=== PATIENT | female | born 1955 | race Caucasian/White ===

== ENCOUNTER 2023-12-08 20:50 | Emergency (ER) | payer MEDICARE, OTHER, SELFPAY ==
[2023-12-08] VITALS (7 sets, daily range): BP systolic 147–191; BP diastolic 74–100; BMI 26.1
[2023-12-08 22:14] LABS: % Basophils 0.5 % (0-2); % Eosinophils 3.2 % (0-6); % Immature Granulocytes 0.4 % (0-0.5); % Monocytes 8.6 % (1.7-9.3); % Neutrophils 52.3 % (42.2-75.2); Absolute Eosinophils 0.3 10^3/uL (0-0.7); Absolute Lymphocytes 2.9 10^3/uL (1.2-3.4); Absolute Monocytes 0.7 10^3/uL (0.1-0.6); Absolute Neutrophils 4.3 10^3/uL (1.4-6.5); Hematocrit 39.5 % (37.0-47.0); Hemoglobin 13.2 g/dL (12.0-16.0); Mean Corp Hgb Conc. 33.4 g/dL (33.0-37.0); Mean Corpuscular Hgb 30.5 pg (27.0-31.0); Mean Corpuscular Volume 91.2 fL (81.0-99.0); Mean Platelet Volume 10.3 fL (7.4-10.4); Nucleated Red Blood Cells % 0 %; Platelet Count 192 10^3/uL (130-400); Red Blood Cell Count 4.33 10^6/uL (4.20-5.40); Red Cell Dist. Width 12.8 % (11.5-14.5); White Blood Cell Count 8.3 10^3/uL (4.8-10.8)
--- NOTE | 2023-12-08 22:17 | ED.GENMED ---
History of Present Illness
General
Chief Complaint: Blood Pressure Problem
Source: patient
Exam Limitations: none
Time Seen by Provider: 12/08/23 22:05
Nursing documentation reviewed up to this point in time: agreed with
Travel History
Have you had any contact with someone who has COVID-19?: No
Do you have any symptoms of coronavirus? Fever > 100 degrees, chills, cough, shortness of breath, sore throat, loss of taste or smell, muscle aches, or headache?: No
History of Present Illness
History of Present Illness:
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
vomiting no chest pain or shortness of breath
She is noted her blood pressures in the past week or so as well high as 190/100 not on any antihypertensive meds, does have appointment see cardiology in 2 weeks to be evaluated, no history of CAD, does have a family history no slurred speech no arm
or leg weakness, no shortness of breath did have a 1 or 2-second twinge of sharp pain in her chest earlier today
Past History
Past History
ED Past Medical History: GERD and Hypercholesterolemia; Negative HTN
ED Past Surgical History: and Gynecological (Bladder suspension)
Social History
Tobacco: Non-smoker
Alcohol: None
Drug: None
Personal: Single
Employment: Employed
Family History
Family History: CAD (Father at a late age); Negative Early CAD or Sudden
Review of Systems
Review of Systems
All Other Systems: Not applicable
Constitutional: Reports no symptoms; Denies fever or fatigue
EENT: Reports no symptoms
Respiratory: Denies cough or trouble breathing
Cardiac: Reports chest pain (1 to 2-second 20)
ABD/GI: Reports no symptoms
: Reports no symptoms
Musculoskeletal: Reports no symptoms
Skin: Reports no symptoms
Neurological: Reports headache; Denies dizzy
Endocrine: Reports no symptoms
Hematologic/Lymphatic: Reports no symptoms
Phy Exam
Physical Exam
Physical Exam:
Physical Exam
General: no apparent distress, not acutely ill
Neck: No jaundice
Heart: s1/s2 regular rate and rhythm, no murmur. equal radial pulses.
Lungs: no acute respiratory distress. clear bilaterally
Abdomen: Nontender
Neuro: alert and oriented. no focal neurological deficits no facial palsy clears
Skin: no rash
Psychiatric: well kept. interactive and cooperative
Extremities: no edema.
Course
Orders/Labs/Results
Orders:
Orders
12/08/23 21:02
Electrocardiogram (*1) Urgent
Reason for Study: QTc Monitoring
EKG- Treatment ONCE
12/08/23 21:45
Cardiac Monitoring- Treatment ONCE
IV Insert/Care/Rem.- Treatment PRN
12/08/23 22:10
Basic Metabolic Panel Urgent
Complete Blood Count/With Diff Urgent
Erythrocyte Sed Rate Urgent
Comment: ADD ON
12/08/23 22:15
Electrocardiogram (*1) Urgent
Reason for Study: Hypertension, Benign
EKG- Treatment ONCE
Acetaminophen [Tylenol] 1,000 mg PO NOW STA
12/08/23 22:16
CT Head W/o Iv Contrast Urgent
Comment:
Reason For Exam: headache
Troponin I Urgent
12/08/23 22:21
Add On- LAB Urgent
Tests Added?: esr
12/08/23 22:25
Enalapril [Vasotec] 5 mg PO NOW STA
Abnormal Lab Results
12/08/23
22:10
Absolute Monos (auto) 0.7 H 10^3/uL
(0.1-0.6)
BUN 22 H mg/dl
(7-17)
Glucose 108 H mg/dl
(70-99)
12/08/23 22:10
12/08/23 22:10
Vital Signs
Initial and Last Documented VS:
Initial Vital Signs
Temp Pulse Resp BP Pulse Ox
98.0 F 75 18 191/100 100
12/08/23 20:52 12/08/23 20:52 12/08/23 20:52 12/08/23 20:52 12/08/23 20:52
Last Documented Vital Signs
Temp Pulse Resp BP Pulse Ox
98.0 F 60 18 183/92 97
12/08/23 20:52 12/08/23 23:00 12/08/23 20:52 12/08/23 23:00 12/08/23 23:00
MDM/Problems Addressed
Differential Diagnosis Includes:
Hypertension, intracerebral process, temporal arteritis giant cell arteritis doubt ACS or PE
MDM/Problems Addressed:
High blood pressure headache
*Radiology
Radiology exam reviewed: preliminary read by ED provider
*Pulse Oximetry
Patient hypoxic: no
*EKG
Interpreted by ED Provider?: Yes
Interpretation: normal
Comparison EKG: no comparison EKG present
Heart Rate: 78
Rate: normal
Rhythm: sinus
Ischemia: no ischemia
*Billet Heater Operator Interpretation
Rate: normal
Interpretation: normal
Heart Rate: 78
Rhythm: sinus
*Critical Care Note
Total Time (30-74mins, 75-104mins- exclusive of procedures): Not Applicable
Update Note
Update Note:
Update [address] of the head noted report noted EKG noted troponin ESR noted patient feeling better
Follow-up with PCP, keep her appointment with cardiology
ED Attending Note
-
Portions of this chart may have been created with voice recognition software.� Occasional wrong word or��sound alike� substitutions may have occurred due to the inherent limitations of voice recognition software.
Discharge Plan
Departure
Patient Disposition: Home (Routine Discharge)
Date of Disposition: 12/08/23
Time of Disposition: 23:59
Patient with high blood pressure during this ER visit?: Yes
Condition: Good
Discharge Problem:
High blood pressure
Instructions: High Blood Pressure (DC)
Prescriptions:
No Action
atorvastatin 10 mg Tablet
10 mg PO HS
Referrals:
Chioma Brown MD [Family Provider] -
Interventions
Interventions:
*Risk Screen - Suicide Last Done: 12/08/23 20:52
*General Assessment Last Done: 12/08/23 20:52
*Neglect/Abuse Screening Last Done: 12/08/23 20:52
ED- Fall Risk Assessment Last Done: 12/08/23 22:18
*ED COVID-19 Vaccine History Last Done: 12/08/23 20:52
ED- Cardiac Assessment Last Done: 12/08/23 22:18
ED- Neurological Assessment Last Done: 12/08/23 22:18
ED- Pulmonary Assessment Last Done: 12/08/23 22:18
Discharge Date and Time
Print Language: WOLOF
[2023-12-08 22:32] LABS: Blood Urea Nitrogen 22 mg/dl (7-17); Carbon Dioxide 28 mmol/L (22-30); Chloride 99 mmol/L (98-107); Estimated Creatinine Clearance 68 ml/min; Glucose 108 mg/dl (70-99); Sodium 135 mmol/L (135-145); eGFR > 60.00
[2023-12-08] MEDS: VASOTEC 5 MG PO (22:47)
[2023-12-08] MEDS: TYLENOL 1000 MG PO (22:47)
[2023-12-08 22:59] LABS: Erythrocyte Sed Rate 15 mm/hour (0-20)
[2023-12-09] VITALS: BP 150/81
[2023-12-09 00:49] LABS: Troponin I < 0.012 ng/ml
== END 2023-12-09 00:20 | disposition home or self-care (01) ==
LOC: EMR 20:50
PROVIDERS: Emergency Medicine; EMERGENCY PHYSICIAN Emergency Medicine; FAMILY PHYSICIAN Family Medicine
DX: I10 Essential (primary) hypertension (principal)
CPT/HCPCS: 99285; 70450; 80048; 84484; 85025; 85652; 93005

== ENCOUNTER 2023-12-17 21:01 | Emergency (ER) | payer MEDICARE, OTHER, SELFPAY ==
[2023-12-17 21:06] VITALS: BP 172/89
[2023-12-17 21:22] LABS: % Basophils 0.6 % (0-2); % Eosinophils 2.1 % (0-6); % Immature Granulocytes 0.1 % (0-0.5); % Lymphocytes 35.6 % (20.5-51.1); % Monocytes 7.7 % (1.7-9.3); % Neutrophils 53.9 % (42.2-75.2); Absolute Basophils 0.1 10^3/uL (0-0.2); Absolute Eosinophils 0.2 10^3/uL (0-0.7); Absolute Lymphocytes 3.2 10^3/uL (1.2-3.4); Absolute Monocytes 0.7 10^3/uL (0.1-0.6); Absolute Neutrophils 4.8 10^3/uL (1.4-6.5); Hematocrit 39.2 % (37.0-47.0); Hemoglobin 13.7 g/dL (12.0-16.0); Mean Corp Hgb Conc. 34.9 g/dL (33.0-37.0); Mean Corpuscular Hgb 30.9 pg (27.0-31.0); Mean Corpuscular Volume 88.5 fL (81.0-99.0); Mean Platelet Volume 10.1 fL (7.4-10.4); Nucleated Red Blood Cells % 0 %; Platelet Count 214 10^3/uL (130-400); Red Blood Cell Count 4.43 10^6/uL (4.20-5.40); Red Cell Dist. Width 12.6 % (11.5-14.5); White Blood Cell Count 8.9 10^3/uL (4.8-10.8)
[2023-12-17 21:43] LABS: ALT (SGPT) 25 U/L (0-35); AST (SGOT) 29 U/L (14-36); Albumin 4.8 g/dl (3.5-5.0); Alkaline Phosphatase 71 U/L (38-126); Blood Urea Nitrogen 17 mg/dl (7-17); Calcium 10.3 mg/dl (8.4-10.2); Carbon Dioxide 29 mmol/L (22-30); Chloride 100 mmol/L (98-107); Glucose 93 mg/dl (70-99); Potassium 3.9 mmol/L (3.5-5.1); Sodium 135 mmol/L (135-145); Total Bilirubin 0.6 mg/dl (0.2-1.3); Total Protein 7.8 g/dl (6.3-8.2); eGFR > 60.00
[2023-12-17 21:44] LABS: Troponin I < 0.012 ng/ml
[2023-12-17 23:14] VITALS: BP 173/80
[2023-12-17 23:48] VITALS: BP 159/76
[2023-12-18] VITALS: BP 162/81
--- NOTE | 2023-12-18 00:33 | ED.GENMED ---
History of Present Illness
General
Chief Complaint: Blood Pressure Problem
Source: patient
Exam Limitations: none
Time Seen by Provider: 12/18/23 00:18
Travel History
Have you had any contact with someone who has COVID-19?: No
Do you have any symptoms of coronavirus? Fever > 100 degrees, chills, cough, shortness of breath, sore throat, loss of taste or smell, muscle aches, or headache?: No
History of Present Illness
History of Present Illness:
68-year-old female presents with elevated blood pressure readings. She was here 10 days ago and diagnosed with hypertension. She was started on Vasotec 5 mg daily. She has been doing well. This evening she checked her blood pressure at home it
was systolic of 200. She states she feels okay without chest pain headache vision changes leg swelling or cough. She denies shortness of breath. She is due to see clinical nurse occupational medicine in 5 days. No other complaints at this time
Past History
Past History
ED Past Medical History: GERD and Hypercholesterolemia; Negative HTN
ED Past Surgical History: and Gynecological (Bladder suspension)
Social History
Tobacco: Non-smoker
Alcohol: None
Drug: None
Personal: Single
Employment: Employed
Family History
Family History: CAD (Father at a late age); Negative Early CAD or Sudden
Phy Exam
Physical Exam
Physical Exam:
General: Well-appearing female no acute respiratory distress
HEENT: Normocephalic atraumatic
Heart: Regular rate and rhythm no murmurs
Lungs: Clear to auscultation bilaterally no wheezing
Extremities: No cyanosis or edema
Skin: Warm no rash
Course
Orders/Labs/Results
Orders:
Orders
12/17/23 21:08
Electrocardiogram (*1) Urgent
Reason for Study: Other
Other Reason for Exam: hypertension
EKG- Treatment ONCE
12/17/23 21:16
Complete Blood Count/With Diff Urgent
Comprehensive Metabolic Panel Urgent
Troponin I Urgent
Abnormal Lab Results
12/17/23
21:16
Absolute Monos (auto) 0.7 H 10^3/uL
(0.1-0.6)
Calcium 10.3 H mg/dl
(8.4-10.2)
12/17/23 21:16
12/17/23 21:16
Vital Signs
Initial and Last Documented VS:
Initial Vital Signs
Temp Pulse Resp BP Pulse Ox
97.7 F 61 18 172/89 100
12/17/23 21:06 12/17/23 21:06 12/17/23 21:06 12/17/23 21:06 12/17/23 21:06
Last Documented Vital Signs
Temp Pulse Resp BP Pulse Ox
97.7 F 61 18 159/76 100
12/17/23 21:06 12/17/23 21:06 12/17/23 21:06 12/17/23 23:48 12/17/23 21:06
MDM/Problems Addressed
Differential Diagnosis Includes:
Elevated blood pressure readings at home. Asymptomatic currently. Labs through triage without significant finding. Currently blood pressure 160s over 80s. No indication for urgent lowering of blood pressure here. She will continue to check her
blood pressure. We discussed increasing her Vasotec to 10 mg daily. She will keep her appointment with her clinical nurse occupational medicine as planned.
*Critical Care Note
Total Time (30-74mins, 75-104mins- exclusive of procedures): Not Applicable
ED Attending Note
-
Portions of this chart may have been created with voice recognition software.� Occasional wrong word or��sound alike� substitutions may have occurred due to the inherent limitations of voice recognition software.
Discharge Plan
Departure
Patient Disposition: Home (Routine Discharge)
Date of Disposition: 12/18/23
Time of Disposition: 00:36
Patient with high blood pressure during this ER visit?: No
Discharge Problem:
Hypertension
Instructions: High Blood Pressure (DC)
Prescriptions:
No Action
atorvastatin 10 mg Tablet
10 mg PO HS
enalapril maleate [Vasotec] 5 mg tablet
5 mg PO DAILY Qty: 30 2RF
Referrals:
Chioma Brown MD [Family Provider] -
Activity Restrictions/Additional Instructions:
Please keep your appointment with cardiology as planned. You may increase Vasotec to 10 mg daily for better blood pressure control. Return if worse otherwise
Interventions
Interventions:
*Risk Screen - Suicide Last Done: 12/17/23 21:07
*General Assessment Last Done: 12/17/23 21:07
*Neglect/Abuse Screening Last Done: 12/17/23 21:07
*ED COVID-19 Vaccine History Last Done: 12/17/23 21:07
Discharge Date and Time
Print Language: SETSWANA
== END 2023-12-18 01:20 | disposition home or self-care (01) ==
LOC: EMR 21:01
PROVIDERS: EMERGENCY PHYSICIAN Emergency Medicine; FAMILY PHYSICIAN Family Medicine
DX: I10 Essential (primary) hypertension (principal); K21.9 Gastro-esophageal reflux disease without esophagitis; E78.00 Pure hypercholesterolemia, unspecified; Z82.49 Family history of ischemic heart disease and other diseases of the circulatory system
CPT/HCPCS: 99283; 80053; 84484; 85025; 93005

== ENCOUNTER → 2023-12-23 13:14 | Outpatient (REF) | payer MEDICARE, OTHER, SELFPAY | LOC: WDC 13:14 | PROVIDERS: ATTENDING PHYSICIAN Family Medicine | DX: Z12.31 Encounter for screening mammogram for malignant neoplasm of breast (principal) | CPT/HCPCS: 77063; 77067 ==

== ENCOUNTER → 2024-01-21 15:46 | Outpatient (REF) | payer MEDICARE, OTHER, SELFPAY | LOC: HWRCS 15:46 | PROVIDERS: ATTENDING PHYSICIAN Internal Medicine Cardiovascular Disease; FAMILY PHYSICIAN Family Medicine | DX: R03.0 Elevated blood-pressure reading, without diagnosis of hypertension (principal) | CPT/HCPCS: 93306 ==

== ENCOUNTER → 2024-02-24 09:50 | Outpatient (REF) | payer MEDICARE, OTHER, SELFPAY | LOC: DHSLP 09:50 | PROVIDERS: ATTENDING PHYSICIAN Internal Medicine; FAMILY PHYSICIAN Family Medicine | DX: G47.33 Obstructive sleep apnea (adult) (pediatric) (principal) | CPT/HCPCS: 95800 ==

== ENCOUNTER → 2024-02-25 11:42 | Outpatient (REF) | payer MEDICARE, OTHER, SELFPAY | LOC: RAD 11:42 | PROVIDERS: ATTENDING PHYSICIAN Internal Medicine Rheumatology; FAMILY PHYSICIAN Family Medicine | DX: M54.50 Low back pain, unspecified (principal) | CPT/HCPCS: 72110 ==

== ENCOUNTER → 2024-04-12 12:00 | Outpatient (REF) | payer MEDICARE, OTHER, SELFPAY | LOC: DHSLP 12:00 | PROVIDERS: ATTENDING PHYSICIAN Internal Medicine; FAMILY PHYSICIAN Family Medicine | DX: G47.33 Obstructive sleep apnea (adult) (pediatric) (principal) | CPT/HCPCS: 95800 ==

== ENCOUNTER → 2024-12-23 13:16 | Outpatient (REF) | payer OTHER, SELFPAY | LOC: WDC 13:16 | PROVIDERS: ATTENDING PHYSICIAN Family Medicine | DX: Z12.31 Encounter for screening mammogram for malignant neoplasm of breast (principal) | CPT/HCPCS: 77063; 77067 ==

== ENCOUNTER → 2025-01-06 09:31 | Outpatient (REF) | payer OTHER, SELFPAY | LOC: WDC 09:31 | PROVIDERS: ATTENDING PHYSICIAN Family Medicine | DX: R92.8 Other abnormal and inconclusive findings on diagnostic imaging of breast (principal) | CPT/HCPCS: 77065 ==

== ENCOUNTER → 2025-01-11 06:31 | Outpatient (REF) | payer OTHER, SELFPAY ==
--- NOTE | 2025-01-11 08:54 | OID.BR.INTR ---
[facility] Breast Navigator - Initial
- -
Date of Contact: 01/11/25
Met with patient. Patient given written information on navigator service available at [facility]. Will follow up as needed per protocol.
== END ==
LOC: WDC 06:31
PROVIDERS: ATTENDING PHYSICIAN Family Medicine
DX: R92.1 Mammographic calcification found on diagnostic imaging of breast (principal)
CPT/HCPCS: 88305; 19081; 76098; 88341; 88342; 88360; A4648

== ENCOUNTER → 2025-01-28 13:09 | Outpatient (REF) | payer OTHER, SELFPAY | LOC: WDC 13:09 | PROVIDERS: ATTENDING PHYSICIAN Surgery; FAMILY PHYSICIAN Family Medicine | DX: R92.2 Inconclusive mammogram (principal); D05.91 Unspecified type of carcinoma in situ of right breast | CPT/HCPCS: 76641 ==

== ENCOUNTER → 2025-03-01 11:01 | Outpatient (REF) | payer OTHER, SELFPAY | LOC: RAD 11:01 | PROVIDERS: ATTENDING PHYSICIAN Nurse Practitioner Adult Health | DX: M25.551 Pain in right hip (principal) | CPT/HCPCS: 73502 ==

== ENCOUNTER → 2025-03-07 11:04 | Outpatient (REF) | payer OTHER, SELFPAY | LOC: WDC 11:04 | PROVIDERS: ATTENDING PHYSICIAN Surgery; FAMILY PHYSICIAN Family Medicine | DX: D05.91 Unspecified type of carcinoma in situ of right breast (principal) | CPT/HCPCS: 19281; A4648 ==

== ENCOUNTER 2025-03-08 06:10 | Day surgery (SDC) | payer OTHER, SELFPAY ==
[2025-03-01 11:37] LABS: Hematocrit 39.5 % (37.0-47.0); Hemoglobin 12.9 g/dL (12.0-16.0); Mean Corp Hgb Conc. 32.7 g/dL (33.0-37.0); Mean Corpuscular Volume 91.9 fL (81.0-99.0); Platelet Count 258 10^3/uL (130-400); Red Cell Dist. Width 12.9 % (11.5-14.5)
[2025-03-01 12:13] LABS: ALT (SGPT) 21 U/L (0-35); AST (SGOT) 24 U/L (14-36); Albumin 4.5 g/dl (3.5-5.0); Alkaline Phosphatase 51 U/L (38-126); Blood Urea Nitrogen 14 mg/dl (7-17); Calcium 10.1 mg/dl (8.4-10.2); Carbon Dioxide 32 mmol/L (22-30); Chloride 106 mmol/L (98-107); Glucose 111 mg/dl (70-99); Potassium 4.3 mmol/L (3.5-5.1); Sodium 141 mmol/L (135-145); Total Protein 7.3 g/dl (6.3-8.2); eGFR > 60.00
[2025-03-01 12:19] LABS: Prealbumin (Transthyretin) 24.2 mg/dl (17.6-36.0)
[2025-03-01 12:32] LABS: Vitamin D, 25-OH*** 49.9 ng/mL (30-80)
[2025-03-01 14:21] VITALS: BMI 26.7
[2025-03-08 10:39] VITALS: BMI 26.7
[2025-03-08 10:41] VITALS: BP 164/82
[2025-03-08] MEDS: TYLENOL 1000 MG PO (10:46)
[2025-03-08] MEDS: LOVENOX 40 MG SC (11:02)
[2025-03-08] MEDS: NORMOSOL-R/PLASMALYTE-A 1000 IV (11:03)
[2025-03-08 13:18] VITALS: BP 161/97
[2025-03-08 13:30] VITALS: BP 162/79
[2025-03-08 13:55] VITALS: BP 155/92
[2025-03-08 14:00] VITALS: BP 171/86
[2025-03-08 14:15] VITALS: BP 171/82
--- NOTE | 2025-03-08 15:42 | W.IMMPOSTOP ---
Surgical Immed Post Op Note
-
Primary Surgeon: Nolan
Assisting Surgeon: None
Pre-op Diagnosis: Right breast DCIS
Post-op Diagnosis: Same
Procedure Performed: Right localized lumpectomy
Anesthesia Type: TIVA
Specimen / Cultures: right lumpectomy, margins
Estimated Blood Loss: 4cc
Complications: none
Operative Findings: ckip and reflector in specimen
--- NOTE | 2025-03-08 15:43 | OR.RPT ---
Operative Report
Operative Report
Date of surgery: 03/08/2025
Surgeon: Nolan
Preoperative diagnosis: Right breast DCIS
Postoperative diagnosis: Right breast DCIS
Procedure: Right localized lumpectomy
The patient is a 69-year-old female who had experienced an interval change on screening mammography and underwent stereotactic core biopsy showing DCIS. She presents for breast conservation surgery. On the day prior to the procedure she presented
to the [place] breast imaging center and had a [employer] commercial banker reflector placed in the appropriate region. On the day of surgery she presented to the same-day surgical services where she verified site and procedure and was prepped. DVT and antibiotic
prophylaxis were provided.
The patient was taken to the operating room and in the supine position intravenous sedation was delivered. The right breast was prepped and draped in the usual sterile fashion. The patient had a pigmented lesion just superior to the nipple areolar
complex and this contained 2 shades of pigment with some slight irregularity therefore I made an interoperative decision to remove it. An appropriate timeout was performed by all team members. All tissues were anesthetized with 1% lidocaine plain.
A superior circumareolar incision was made sharply with the blade and the pigmented lesion was included in the superior extension of this incision. This skin was excised oriented and sent for permanent analysis. Skin flap was elevated in the
oncoplastic plane by using a lighted retractor in the cautery. The savvy probe was used to sound out the signal of the reflector and a wide lumpectomy was performed in a radial direction. Time out of body was noted and the specimen was oriented
for the pathologist. Specimen radiography confirmed the presence of clip and reflector within it. Additional margins were harvested for permanent analysis from the posterior, medial, superior, lateral, inferior, and dimensions. These were
oriented as well. Hemostasis was verified. Marcaine 0.5% plain was instilled into all tissues and hemoclips were placed in the resection cavity. The wound was closed with simple interrupted 3-0 plain on deep intermediate and subcutaneous tissue
and skin was closed with a running subcuticular 4-0 Monocryl. Surgical glue and a sterile compressive dressing were applied. All sponge needle and instrument counts were correct and the patient was transferred to the recovery room in stable
condition thank you
([id number])
== END 2025-03-08 14:50 | disposition home or self-care (01) ==
LOC: SDS 06:10
PROVIDERS: ATTENDING PHYSICIAN Surgery; FAMILY PHYSICIAN Family Medicine
DX: D05.11 Intraductal carcinoma in situ of right breast (principal)
CPT/HCPCS: 19301; 36415; 76098; 80053; 82306; 84134; 85027; 88305; 88307; 88341; 88342; 88360; 93005

== ENCOUNTER 2025-03-11 06:10 | Day surgery (SDC) | payer OTHER, SELFPAY ==
[2025-03-11 09:54] VITALS: BMI 27.5
[2025-03-11 09:55] VITALS: BMI 27.5
[2025-03-11 09:56] VITALS: BP 158/79
[2025-03-11] MEDS: NORMOSOL-R/PLASMALYTE-A 1000 IV (10:15)
[2025-03-11] MEDS: TYLENOL 1000 MG PO (10:15)
[2025-03-11 13:17] VITALS: BP 144/67
[2025-03-11 13:30] VITALS: BP 120/100
[2025-03-11 13:45] VITALS: BP 165/74
--- NOTE | 2025-03-11 14:43 | W.IMMPOSTOP ---
Surgical Immed Post Op Note
-
Primary Surgeon: Nolan
Assisting Surgeon: None
Pre-op Diagnosis: Hematoma right breast
Post-op Diagnosis: Same
Procedure Performed: Evacuation hematoma right breast
Anesthesia Type: TIVA
Specimen / Cultures: None
Estimated Blood Loss: 20cc
Complications: None
Operative Findings: None
--- NOTE | 2025-03-11 14:44 | OR.RPT ---
Operative Report
Operative Report
Date of surgery: 03/11/2025
Surgeon: Nolan
Preoperative diagnosis: Right breast hematoma
Postoperative diagnosis: Same
Procedure evacuation hematoma right breast
The patient is a 69-year-old female who had undergone a lumpectomy for the treatment of right breast DCIS 3 days ago. She presented to the office with a large tense hematoma that was not expanding on POD #2 and she presented to the operating room
for evacuation.
The patient presented to the same-day surgical services where she was prepped. She verified site and procedure and DVT and antibiotic prophylaxis were provided.
She was taken to the operating room and in the supine position, intravenous sedation was delivered. An appropriate timeout was performed by all staff members. All tissues were anesthetized with 1% lidocaine plain. The previous superior
circumareolar incision was entered sharply with the blade. A hematoma approximately 100 cc in volume was bluntly evacuated. The wound was irrigated with warm water and suctionned and careful inspection of all tissues was made. There is no active
bleeding, but any oozing tissues were sealed with the cautery.
Tissues were instilled with 0.5% Marcaine plain. A portion of Surgicel was placed in the resection bed. The wound was closed in multiple layers using 3-0 Vicryl on deep, intermediate and subcutaneous tissue and skin was closed with a running
subcuticular 4 Monocryl.
Surgical glue and sterile compressive dressings were applied. All sponge needle and instrument counts were correct and the patient was transferred back to the same-day surgical services area
([id number])
== END 2025-03-11 14:12 | disposition home or self-care (01) ==
LOC: SDS 06:10
PROVIDERS: ATTENDING PHYSICIAN Surgery
DX: N64.89 Other specified disorders of breast (principal); D05.11 Intraductal carcinoma in situ of right breast
CPT/HCPCS: 21501; L8000

== ENCOUNTER 2025-05-31 09:02 | Outpatient (RCR) | payer OTHER, SELFPAY | END 2025-05-31 23:59 | disposition home or self-care (01) | LOC: RPT 09:02 | PROVIDERS: ATTENDING PHYSICIAN Internal Medicine Rheumatology; FAMILY PHYSICIAN Family Medicine | DX: M25.551 Pain in right hip (principal); M54.51 Vertebrogenic low back pain; Z73.6 Limitation of activities due to disability; M62.81 Muscle weakness (generalized); R26.89 Other abnormalities of gait and mobility | CPT/HCPCS: 97110; 97112; 97162 ==

== ENCOUNTER 2025-06-23 15:09 | Outpatient (RCR) | payer OTHER, SELFPAY | END 2025-06-23 23:59 | disposition home or self-care (01) | LOC: RPT 15:09 | PROVIDERS: ATTENDING PHYSICIAN Internal Medicine Rheumatology; FAMILY PHYSICIAN Family Medicine | DX: M25.551 Pain in right hip (principal); M54.51 Vertebrogenic low back pain; Z73.6 Limitation of activities due to disability; M62.81 Muscle weakness (generalized); R26.89 Other abnormalities of gait and mobility | CPT/HCPCS: 97110; 97140 ==

== ENCOUNTER → 2025-07-05 10:32 | Outpatient (REF) | payer OTHER, SELFPAY | LOC: RAD 10:32 | PROVIDERS: ATTENDING PHYSICIAN Nurse Practitioner Adult Health; FAMILY PHYSICIAN Family Medicine | DX: R68.84 Jaw pain (principal) | CPT/HCPCS: 70110 ==

== ENCOUNTER → 2025-08-26 09:08 | Outpatient (REF) | payer OTHER, SELFPAY | LOC: WDC 09:08 | PROVIDERS: ATTENDING PHYSICIAN Nurse Practitioner Adult Health; FAMILY PHYSICIAN Family Medicine | DX: N63.42 Unspecified lump in left breast, subareolar (principal) | CPT/HCPCS: 76642; 77061; 77065 ==